=== PATIENT | female | born 1990 | race Hispanic/Latino ===

== ENCOUNTER 2017-12-08 00:26 | Observation (INO) | payer BC ==
[~2017-12-08] VITALS: Ht 162.6 cm; Wt 77.1 kg
[~2017-12-08 00:26] MED LIST: DOCU-116 PO; MO8B PO; PREN-147 PO
[2017-12-08 01:07] LABS: APPEARANCE,URINE Clear (CLEAR); BILIRUBIN,URINE Negative (NEGATIVE); COLOR,URINE Dark Yellow (YELLOW); GLUCOSE, URINE (UA) Negative (NEGATIVE); KETONES,URINE >=160 mg/dL (NEGATIVE); LEUKOCYTE ESTERASE ,URINE Moderate (NEGATIVE); NITRATE,URINE Negative (NEGATIVE); OCCULT BLOOD,URINE Negative (NEGATIVE); PH,URINE 5.5 (5.0-8.0); PROTEIN,URINE Trace (NEGATIVE)
[2017-12-08 01:14] LABS: AMPHET/METH SCREEN,URINE NEGATIVE (NEGATIVE); BACTERIA,URINE Few /HPF (None Seen); BARBITURATE SCREEN, URINE NEGATIVE (NEGATIVE); BENZODIAZEPINES SCREEN,URINE NEGATIVE (NEGATIVE); CANNABINOID SCREEN,URINE NEGATIVE (NEGATIVE); COCAINE SCREEN,URINE NEGATIVE (NEGATIVE); OPIATE SCREEN,URINE NEGATIVE (NEGATIVE); PHENCYCLIDINE SCREEN,URINE NEGATIVE (NEGATIVE); RBC,URINE None Seen /HPF (0-1); SQUAMOUS EPITHELIAL CELL,UR Few /HPF (0-2)
[2017-12-08] MEDS: LACTATED RINGERS 1000ML 1,000 ML IV PRN ×2 (01:40→02:47)
[2017-12-08] MEDS ORDERED: TERBUTALINE SULFATE VIAL 1MG/ML SQ SCH ×2 (02:00)
[2017-12-08] MEDS ORDERED: LACTATED RINGERS 1000ML 1,000 ML IV SCH (02:00)
[2017-12-08] MEDS ORDERED: TERBUTALINE SULFATE VIAL 1MG/ML SQ ONE (02:35)
== END 2017-12-08 08:40 | disposition home or self-care (01) ==
LOC: EDH 00:26 → LDH 00:43
PROVIDERS: ADMIT Obstetrics & Gynecology; ATTEND Obstetrics & Gynecology
DX: O36.8130 Decreased fetal movements, third trimester, not applicable or unspecified (principal); O21.2 Late vomiting of pregnancy; Z3A.33 33 weeks gestation of pregnancy; Z79.899 Other long term (current) drug therapy
CPT/HCPCS: 80305; 81001; 96360; 96361 ×2; 96372; 99285; G0378 ×8; J3105; J7120 ×2

== ENCOUNTER 2019-10-09 09:09 | Inpatient (IN) | payer BC ==
[~2019-10-09] VITALS: Ht 163.8 cm; Wt 83.5 kg
[~2019-10-09 09:09] MED LIST changes: +IBUP-1493 PO; -MO8B PO
[2019-10-09] MEDS: LACTATED RINGERS 1000ML 1,000 ML IV PRN ×4 (09:45→22:09)
[2019-10-09 09:59] LABS: HEMATOCRIT 35.3 % (36-48); MEAN CORPUSCULAR HEMOGLOBIN 30.1 pg (27.0-33.0); MEAN CORPUSCULAR HGB CONC 33.7 g/dL (32.0-36.0); MEAN CORPUSCULAR VOLUME 89.1 fL (79-99); RED BLOOD CELL COUNT(AUTO) 3.96 MIL/uL (4.00-5.50); RED CELL DISTRIBUTION WIDTH 13.8 % (11.0-15.5); WHITE BLOOD COUNT (AUTO) 11.4 K/uL (4.8-10.8)
[2019-10-09] MEDS ORDERED: LACTATED RINGERS 500 ML 500 ML IV PRN (10:00)
[2019-10-09] MEDS ORDERED: OXYTOCIN 10 USP UNITS/ML 20 UNIT in LACTATED RINGERS 1000ML 1,000 ML IV SCH (10:00)
[2019-10-09] MEDS ORDERED: NALOXONE HCL 0.4 MG/1 ML ML IV PRN (10:00)
[2019-10-09] MEDS ORDERED: OXYTOCIN-LR 20 UNITS/1000 ML 1,000 ML IV SCH (10:00)
[2019-10-09] MEDS ORDERED: EPHEDRINE SULFATE 50 MG/ML AMPULE IVP PRN (10:00)
[2019-10-09] MEDS ORDERED: ROPIVACAINE 0.2% 100ML VIAL 100 ML EP SCH (10:00)
[2019-10-09 10:26] LABS: APPEARANCE,URINE Cloudy (CLEAR); BILIRUBIN,URINE Negative (NEGATIVE); COLOR,URINE Yellow (YELLOW); GLUCOSE, URINE (UA) Negative (NEGATIVE); KETONES,URINE Trace mg/dL (NEGATIVE); LEUKOCYTE ESTERASE ,URINE Small (NEGATIVE); NITRATE,URINE Negative (NEGATIVE); OCCULT BLOOD,URINE Negative (NEGATIVE); PROTEIN,URINE Negative (NEGATIVE)
[2019-10-09 10:33] LABS: BACTERIA,URINE Rare /HPF (None Seen); RBC,URINE 0-1 /HPF (0-1); SQUAMOUS EPITHELIAL CELL,UR Rare /HPF (0-2); WBC,URINE 0-1 /HPF (0-1)
[2019-10-09] MEDS ORDERED: EPHEDRINE SULFATE 50 MG/ML AMPULE ONE (11:32)
[2019-10-09] MEDS ORDERED: WITCH HAZEL 1 PAD TP PRN (14:15)
[2019-10-09] MEDS ORDERED: BENZOCAINE/LANOLIN/ALOE VERA 60 ML AEROSOL TP PRN (14:15)
[2019-10-09] MEDS ORDERED: LANOLIN 30GM OINTMENT TP PRN (14:15)
[2019-10-09] MEDS ORDERED: ACETAMINOPHEN-CODEINE 300/30MG TAB PO PRN (14:15)
[2019-10-09] MEDS ORDERED: DIPH,PERTUSS(ACELL),TET VAC/PF 0.5 ML VIAL IM PRN (14:15)
[2019-10-09] MEDS ORDERED: ACETAMINOPHEN 325 MG TAB PO PRN (14:15)
[2019-10-09] MEDS ORDERED: MEASLES/MUMPS/RUBELLA VACCINE, LIVE 0.5 ML/VIAL SQ PRN (14:15)
[2019-10-09] MEDS: IBUPROFEN 600 MG TABLET PO PRN ×2 (15:40→23:44)
[2019-10-09 15:48] VITALS: BP 104/53
[2019-10-09 19:37] VITALS: BP 108/64
--- NOTE | 2019-10-09 20:00 | NUR ---
Danelle BRANDT CRNA HERE; Danelle Brandt came and talk to patient about blood patch. He ordered to give Fiorecet 2 capsule every 4 hours and apply abdominal binder. He verbalizes that the Epidural Catheter will be removed tomorrow.
[2019-10-09] MEDS: DOCUSATE SODIUM 100 MG CAP PO SCH (20:43)
[2019-10-09] MEDS: BUTALB/ACETAMINOPHEN/CAFFEINE 1 EACH TABLET PO SCH (21:12)
[2019-10-09 23:48] VITALS: BP 102/69
[2019-10-10] MEDS: BUTALB/ACETAMINOPHEN/CAFFEINE 1 EACH TABLET PO SCH ×4 (00:46→13:10)
[2019-10-10 03:51] VITALS: BP 97/63
--- NOTE | 2019-10-10 06:35 | NUR ---
Communication; Johnny Alexandra CRNA at bedside talk to patient about Plan of care. Patient verbalizes understanding. He ordered to keep the Epidural,Catheter until 1100.
[2019-10-10 08:14] LABS: HEPATITIS Bs ANTIGEN SCREEN P Negative (Negative)
[2019-10-10] MEDS: DOCUSATE SODIUM 100 MG CAP PO SCH (08:46)
[2019-10-10 11:02] VITALS: BP 102/63
[2019-10-10] MEDS: IBUPROFEN 600 MG TABLET PO PRN (11:55)
--- NOTE | 2019-10-10 12:10 | NUR ---
epidural catheter removed by miguel angel singh, tip intact Addendum: 10/10/19 at 1219 by KRISTIE THORNE RN Amended: Links added.
--- NOTE | 2019-10-10 13:00 | NUR ---
pt is dismissed, verbal and written discharge instructions given, refer to exit care. prescription given. informed of the follow up appointment. informed to call the doctor for future concerns. pt voiced understanding to all things discussed. pt is waiting for baby to be discharged. Addendum: 10/10/19 at 1339 by KRISTIE THORNE RN Amended: Links added.
--- NOTE | 2019-10-10 14:45 | NUR ---
pt is dismissed in stable condition, brought to private car via wheelchair by Bria Walsh pcp Addendum: 10/10/19 at 1501 by KRISTIE THORNE RN Amended: Links added.
== END 2019-10-10 14:45 | disposition home or self-care (01) | DRG 807 ==
LOC: EDH 09:09 → LDH 09:10 → OBSVTOIN 09:10 → WSH 15:47 → UNDODEPER 23:46
PROVIDERS: ADMIT Obstetrics & Gynecology; ATTEND Obstetrics & Gynecology
PROC: 10E0XZZ Delivery of Products of Conception, External Approach (ICD-10-PCS; principal; 2019-10-09)
PROC: 0KQM0ZZ Repair Perineum Muscle, Open Approach (ICD-10-PCS; 2019-10-09)
PROC: 3E0234Z Introduction of Serum, Toxoid and Vaccine into Muscle, Percutaneous Approach (ICD-10-PCS; 2019-10-09)
PROC: 3E0134Z Introduction of Serum, Toxoid and Vaccine into Subcutaneous Tissue, Percutaneous Approach (ICD-10-PCS; 2019-10-09)
PROC: 10907ZC Drainage of Amniotic Fluid, Therapeutic from Products of Conception, Via Natural or Artificial Opening (ICD-10-PCS; 2019-10-09)
PROC: 3E0R3BZ Introduction of Anesthetic Agent into Spinal Canal, Percutaneous Approach (ICD-10-PCS; 2019-10-09)
PROC: 00HU33Z Insertion of Infusion Device into Spinal Canal, Percutaneous Approach (ICD-10-PCS; 2019-10-09)
DX: O69.1XX0 Labor and delivery complicated by cord around neck, with compression, not applicable or unspecified (principal); Z37.0 Single live birth; Z3A.38 38 weeks gestation of pregnancy; Z23 Encounter for immunization; O70.1 Second degree perineal laceration during delivery
CPT/HCPCS: 36415; 81001; 85027; 86592; 86850; 86900; 86901; 87340; 90715; A4314; G0378; J2590; J2795; J3490; J7120; U0003